=== PATIENT | male | born 1940 | race Caucasian/White ===

== ENCOUNTER 2017-08-16 02:00 | Inpatient (IN) | payer OTHER, BC ==
[~2017-08-16] VITALS: Ht 182.9 cm; Wt 93.5 kg
[2017-08-16 02:45] LABS: HEMATOCRIT 40.5 % (38.0-50.0); HEMOGLOBIN 14.1 G/DL (12.5-16.6); MCH 30.7 PG (29.0-34.0); MCHC 34.8 G/DL (30.0-36.0); MCV 88.2 FL (86-99); PLATELET COUNT 153 K/uL (156-360); RBC DIS.WIDTH-CV 13.9 % (11.8-14.6); RBC DIS.WIDTH-SD 44.9 % (39-53); RED BLOOD COUNT 4.59 M/uL (4.00-5.50); WHITE BLOOD COUNT 5.4 K/uL (4.1-10.2)
[2017-08-16 03:01] LABS: ALBUMIN 3.7 g/dL (3.2-4.8); CHLORIDE 104 mEq/L (99-109); POTASSIUM 3.5 mEq/L (3.7-5.4); SODIUM 137 mEq/L (136-147)
[2017-08-16 03:03] LABS: GLUCOSE 173 mg/dL (70-99); TOTAL PROTEIN 5.7 g/dL (6.4-8.3)
[2017-08-16 03:05] LABS: TOTAL BILIRUBIN 0.7 mg/dL (0.0-1.0)
[2017-08-16 03:07] LABS: ALKALINE PHOSPHATASE 70 IU/L (3-129); CREATININE 1.2 mg/dL (0.6-1.3); GFR ESTIMATE (CALCULATED) > 59 mL/min/ (58.99-99999)
[2017-08-16 03:08] LABS: AST (GOT) 29 IU/L (2-34); UREA NITROGEN (BUN) 26 mg/dL (9-23)
[2017-08-16 03:09] LABS: DIRECT BILIRUBIN 0.3 mg/dL (0.0-0.3)
[2017-08-16 03:10] LABS: ALT (GPT) 20 IU/L (3-49); LIPASE 46 U/L (1.0-51.0); TROP-I INTERPRETATION NEGATIVE; TROPONIN-I 0.03 ng/mL (0.0-0.30)
[2017-08-16 08:37] LABS: INTER. NORMALIZED RATIO 1.2
[2017-08-16 08:40] LABS: PTT 28.5 SEC (25-37)
[2017-08-16 08:50] LABS: TROP-I INTERPRETATION NEGATIVE; TROPONIN-I 0.08 ng/mL (0.0-0.30)
[2017-08-16 08:57] LABS: THYROTROPIN (TSH) 2.4 MIU/L (0.4-5.5)
[2017-08-16] MEDS ORDERED: GLUCOPHAGE850 MG PO (09:42)
[2017-08-16] MEDS ORDERED: LOW DOSE ASPIRI81 M1 PO (09:42)
[2017-08-16] MEDS ORDERED: FLOMAX0.4 MG PO (09:43)
[2017-08-16] MEDS ORDERED: VASOTEC20 MG PO (09:43)
[2017-08-16] MEDS ORDERED: LASIX20 MG PO (09:43)
[2017-08-16] MEDS ORDERED: ANTIVERT12.5 MG PO (09:43)
[2017-08-16] MEDS ORDERED: GLUCOTROL5 MG PO (09:44)
[2017-08-16] MEDS ORDERED: LIPITOR80 MG PO (09:44)
[2017-08-16] MEDS ORDERED: ONE DAILY MULT1 EACH PO (09:44)
[2017-08-16] MEDS ORDERED: PLAVIX75 MG PO (09:44)
[2017-08-16] MEDS ORDERED: LOPRESSOR50 MG PO (09:45)
[2017-08-16] MEDS ORDERED: CLARITIN,ALAVAR10 MG PO (09:45)
[2017-08-16] MEDS ORDERED: ROXICODONE5 MG PO (09:45)
[2017-08-16 14:35] VITALS: BP 136/82
[2017-08-16 15:03] LABS: TROP-I INTERPRETATION NEGATIVE; TROPONIN-I 0.05 ng/mL (0.0-0.30)
[2017-08-16 20:00] VITALS: BP 128/67
[2017-08-16 23:55] VITALS: BP 145/79
[2017-08-17 04:00] VITALS: BP 127/70
[2017-08-17 06:04] LABS: HEMOGLOBIN 12.6 G/DL (12.5-16.6); MCH 30.4 PG (29.0-34.0); MCHC 34.1 G/DL (30.0-36.0); MCV 89.2 FL (86-99); PLATELET COUNT 136 K/uL (156-360); RBC DIS.WIDTH-CV 13.9 % (11.8-14.6); RBC DIS.WIDTH-SD 45.2 % (39-53); RED BLOOD COUNT 4.15 M/uL (4.00-5.50); WHITE BLOOD COUNT 2.7 K/uL (4.1-10.2)
[2017-08-17 06:40] LABS: CHLORIDE 104 MEQ/L (99-109); GFR ESTIMATE (CALCULATED) > 59 mL/min/ (58.99-99999); POTASSIUM 3.6 MEQ/L (3.7-5.4); SODIUM 137 MEQ/L (136-147); UREA NITROGEN (BUN) 26 mg/dL (9-23)
[2017-08-17 06:49] LABS: GLUCOSE 337 mg/dL (70-99)
[2017-08-17 08:10] VITALS: BP 129/70
[2017-08-17 11:52] VITALS: BP 131/68
[2017-08-17 16:59] VITALS: BP 150/81
[2017-08-17 19:24] VITALS: BP 137/78
[2017-08-17 22:25] VITALS: BP 136/72
[2017-08-18 00:57] VITALS: BP 143/76
[2017-08-18 02:24] VITALS: BP 143/78
[2017-08-18 05:38] LABS: BASOPHIL (%) 0.1 % (0-1); EOSINOPHIL (%) 0 % (0-5); HEMATOCRIT 37.6 % (38.0-50.0); HEMOGLOBIN 12.7 G/DL (12.5-16.6); IMMATURE GRANULOCYTE (%) 0.4 % (0.0-0.7); LYMPHOCYTE (%) 5.1 % (15-42); LYMPHOCYTE COUNT 0.4 K/uL (1.0-2.8); MCHC 33.8 G/DL (30.0-36.0); MCV 88.7 FL (86-99); MONOCYTE COUNT 0.2 K/uL (0-0.8); NEUTROPHIL (%) 92.4 % (45-76); NEUTROPHIL COUNT 6.9 K/uL (1.8-6.4); PLATELET COUNT 147 K/uL (156-360); RBC DIS.WIDTH-CV 13.6 % (11.8-14.6); RBC DIS.WIDTH-SD 44.3 % (39-53); RED BLOOD COUNT 4.24 M/uL (4.00-5.50); WHITE BLOOD COUNT 7.4 K/uL (4.1-10.2)
[2017-08-18 06:33] LABS: CHLORIDE 103 MEQ/L (99-109); CREATININE 1.1 MG/DL (0.6-1.3); GFR ESTIMATE (CALCULATED) > 59 mL/min/ (58.99-99999); GLUCOSE 308 mg/dL (70-99); POTASSIUM 3.9 MEQ/L (3.7-5.4); SODIUM 140 MEQ/L (136-147); UREA NITROGEN (BUN) 28 mg/dL (9-23)
[2017-08-18 07:18] VITALS: BP 116/59
[2017-08-18 11:16] VITALS: BP 159/82
[2017-08-18] MEDS ORDERED: OSELTAMIVIR PHO75 MG PO (15:27)
[2017-08-18] MEDS ORDERED: PREDNISONE10 MG PO (15:29)
[2017-08-18] MEDS ORDERED: CARDIZEM CD,CA240 MG PO (17:13)
== END 2017-08-18 17:58 | disposition home or self-care (01) | DRG 191 ==
LOC: EME → EDBD 02:00 → EME 02:00 → 5WEST 07:47 → EDOF 07:47 → ENRESERV 07:48 → 4EAST 14:27 → 5WEST 08-17 23:27
PROVIDERS: Emergency Medicine; Internal Medicine; Nurse Practitioner Family
DX: J44.1 Chronic obstructive pulmonary disease with (acute) exacerbation (principal); I48.92 Unspecified atrial flutter; J11.1 Influenza due to unidentified influenza virus with other respiratory manifestations; I48.0 Paroxysmal atrial fibrillation; J98.09 Other diseases of bronchus, not elsewhere classified; E11.9 Type 2 diabetes mellitus without complications; E78.5 Hyperlipidemia, unspecified; I10 Essential (primary) hypertension; I25.10 Atherosclerotic heart disease of native coronary artery without angina pectoris; Z95.1 Presence of aortocoronary bypass graft; Z87.891 Personal history of nicotine dependence; E66.9 Obesity, unspecified; Z68.29 Body mass index [BMI] 29.0-29.9, adult; E87.6 Hypokalemia; I27.20 Pulmonary hypertension, unspecified; I08.1 Rheumatic disorders of both mitral and tricuspid valves
CPT/HCPCS: 71045; 71275; 80048; 80076; 82948; 83605; 83690; 83880; 84443; 84484; 85025; 85027; 85610; 85730; 87040; 87502; 93005; 93306; 94640; 94640 76; 94799; 99202; 99281; 99285; J0153; J1644; J1815; J2930; J7030; J7050

== ENCOUNTER 2017-09-06 09:02 | Observation (INO) | payer OTHER, BC ==
[~2017-09-06] VITALS: Ht 182.9 cm; Wt 82.2 kg
[~2017-09-06 09:02] MED LIST: ANTIVERT12.5 MG PO; CARDIZEM CD,CA240 MG PO; CLARITIN,ALAVAR10 MG PO; FLOMAX0.4 MG PO; GLUCOPHAGE850 MG PO; GLUCOTROL5 MG PO; LASIX20 MG PO; LIPITOR80 MG PO; LOPRESSOR50 MG PO; LOW DOSE ASPIRI81 M1 PO; ONE DAILY MULT1 EACH PO; OSELTAMIVIR PHO75 MG PO; PLAVIX75 MG PO; PREDNISONE10 MG PO; ROXICODONE5 MG PO; VASOTEC20 MG PO
[2017-09-06 10:07] LABS: BASOPHIL (%) 0.2 % (0-1); EOSINOPHIL (%) 0.8 % (0-5); EOSINOPHIL COUNT 0.1 K/uL (0-0.3); HEMATOCRIT 32.9 % (38.0-50.0); HEMOGLOBIN 11.3 G/DL (12.5-16.6); IMMATURE GRANULOCYTE (%) 0.5 % (0.0-0.7); LYMPHOCYTE COUNT 0.5 K/uL (1.0-2.8); MCH 30.8 PG (29.0-34.0); MCHC 34.3 G/DL (30.0-36.0); MCV 89.6 FL (86-99); MONOCYTE COUNT 0.4 K/uL (0-0.8); NEUTROPHIL (%) 83.5 % (45-76); RBC DIS.WIDTH-CV 14.1 % (11.8-14.6); RBC DIS.WIDTH-SD 45.1 % (39-53); RED BLOOD COUNT 3.67 M/uL (4.00-5.50)
[2017-09-06 10:10] LABS: PLATELET COUNT 214 K/uL (156-360)
[2017-09-06 10:15] LABS: CHLORIDE 102 mEq/L (99-109); POTASSIUM 4.8 mEq/L (3.7-5.4); SODIUM 137 mEq/L (136-147)
[2017-09-06 10:17] LABS: GLUCOSE 284 mg/dL (70-99)
[2017-09-06 10:21] LABS: GFR ESTIMATE (CALCULATED) > 59 mL/min/ (58.99-99999)
[2017-09-06 10:22] LABS: UREA NITROGEN (BUN) 15 mg/dL (9-23)
[2017-09-06] MEDS ORDERED: METOPROLOL TART50 MG PO (10:24)
[2017-09-06] MEDS ORDERED: ELIQUIS5 MG PO (10:25)
[2017-09-06 10:27] LABS: TROP-I INTERPRETATION NEGATIVE; TROPONIN-I 0.02 ng/mL (0.0-0.30)
[2017-09-06 12:32] VITALS: BP 116/67
[2017-09-06 15:58] VITALS: BP 129/74
[2017-09-06 16:13] LABS: TROP-I INTERPRETATION NEGATIVE; TROPONIN-I 0.01 ng/mL (0.0-0.30)
[2017-09-06 19:00] VITALS: BP 104/57
[2017-09-07 00:08] VITALS: BP 114/61
[2017-09-07 00:53] LABS: TROP-I INTERPRETATION NEGATIVE; TROPONIN-I 0.01 ng/mL (0.0-0.30)
[2017-09-07 04:11] VITALS: BP 112/58
[2017-09-07 07:17] VITALS: BP 113/62
[2017-09-07 09:42] LABS: CHLORIDE 102 MEQ/L (99-109); CREATININE 0.9 MG/DL (0.6-1.3); GFR ESTIMATE (CALCULATED) > 59 mL/min/ (58.99-99999); GLUCOSE 216 mg/dL (70-99); POTASSIUM 4.6 MEQ/L (3.7-5.4); SODIUM 136 MEQ/L (136-147); UREA NITROGEN (BUN) 15 mg/dL (9-23)
[2017-09-07 12:07] VITALS: BP 121/71
[2017-09-07] MEDS ORDERED: LOPRESSOR25 MG PO (12:44)
== END 2017-09-07 14:32 | disposition home or self-care (01) ==
LOC: EME 09:02 → EDOF 10:56 → ENRESERV 11:01 → EDOF 11:46 → 5WEST 12:12
PROVIDERS: Emergency Medicine; Internal Medicine
DX: R07.9 Chest pain, unspecified (principal); I48.91 Unspecified atrial fibrillation; I25.10 Atherosclerotic heart disease of native coronary artery without angina pectoris; I10 Essential (primary) hypertension; J44.9 Chronic obstructive pulmonary disease, unspecified; E11.9 Type 2 diabetes mellitus without complications; Z95.1 Presence of aortocoronary bypass graft; I95.9 Hypotension, unspecified; Z79.01 Long term (current) use of anticoagulants; Z79.02 Long term (current) use of antithrombotics/antiplatelets; Z79.82 Long term (current) use of aspirin; Z79.84 Long term (current) use of oral hypoglycemic drugs; Z88.5 Allergy status to narcotic agent
CPT/HCPCS: 71045; 80048; 82948; 84484; 85025; 93005; 99281; 99285; G0378; J1815